=== PATIENT | male | born 2005 | race Caucasian/White ===

== ENCOUNTER 2024-11-19 21:44 | Emergency (ER) | payer OTHER, SELFPAY ==
[2024-11-19 21:47] VITALS: BP 127/71
--- NOTE | 2024-11-19 22:48 | ED.GENMED ---
History of Present Illness
General
Chief Complaint: Crisis Evaluation
Source: patient
Exam Limitations: none
Time Seen by Provider: 11/19/24 22:13
History of Present Illness
History of Present Illness:
19-year-old male apparently anxiety depression. Has been going on for months. Just had a baby. Apparently had an argument with his parents and mentioned that he would throw himself in the pool and drown. He states he has no plan or intent to do
this. This was just verbalizing during an argument in the stressful situation. He absolutely denies suicidal ideation. He does admit to anxiety and depression and is willing to get help for these issues. He denies acute medical complaints
Past History
Past History
ED Past Medical History: Psychiatric (Anxiety)
ED Past Surgical History: None
Social History
Tobacco: Non-smoker
Alcohol: None
Personal: Single
Living: with family
Review of Systems
Review of Systems
All Other Systems: Not applicable
Respiratory: Reports no symptoms
Cardiac: Reports no symptoms
ABD/GI: Reports no symptoms
Phy Exam
Physical Exam
Physical Exam:
GENERAL: Alert and oriented in no apparent distress
EYE: Orbits normal.
NECK: Supple
CARDIAC: Regular rate and rhythm without any obvious murmurs.
LUNGS: Clear breath sounds,normal
ABDOMEN: Soft, without focal tenderness or distention
NEUROLOGICAL: Alert and oriented , grossly non-focal
SKIN: Warm and dry
PSYCH: Normal and appropriate interaction. Cooperative. Pleasant.
Course
Orders/Labs/Results
Orders:
Orders
11/19/24 21:52
Crisis Consult Urgent
Reason for Consult: Depression
11/19/24 21:55
1:1 Observation - Suicide/ Violent Behavior As Directed
Vital Signs
Initial and Last Documented VS:
Initial Vital Signs
Temp Pulse Resp BP Pulse Ox
98.4 F 84 20 127/71 98
11/19/24 21:47 11/19/24 21:47 11/19/24 21:47 11/19/24 21:47 11/19/24 21:47
Last Documented Vital Signs
Temp Pulse Resp BP Pulse Ox
98.0 F 74 18 128/74 96
11/20/24 00:13 11/20/24 00:13 11/20/24 00:13 11/20/24 00:13 11/20/24 00:13
*Pulse Oximetry
SaO2: 98
Oxygen Mode of Delivery: Room air
Patient hypoxic: no (96)
*Critical Care Note
Total Time (30-74mins, 75-104mins- exclusive of procedures): Not Applicable
Update Note
Update Note:
Patient cleared by telepsych. I read and double checked with the patient that he is comfortable with outpatient management and agrees that he would not attempt any issues. Also stated that he would absolutely follow-up.
ED Attending Note
-
Portions of this chart may have been created with voice recognition software.� Occasional wrong word or��sound alike� substitutions may have occurred due to the inherent limitations of voice recognition software.
Discharge Plan
Departure
Patient Disposition: Home (Routine Discharge)
Date of Disposition: 11/20/24
Time of Disposition: 00:04
Patient with high blood pressure during this ER visit?: Yes
Discharge Problem:
Depression/anxiety
Instructions: Depression, Adult (DC), Anxiety, Adult (DC), BLOOD PRESSURE
Prescriptions:
No Action
desvenlafaxine succinate [Pristiq] 25 mg Tablet Extended Release 24 Hr
25 mg PO DAILY
multivitamin Tablet
1 tab PO DAILY
Referrals:
UNKNOWN - PT DOES,NOT KNOW [Family Provider]
Activity Restrictions/Additional Instructions:
Follow-up per crisis. Please return if you start feeling worse or have any worse thoughts or plan.
Interventions
Interventions:
*Risk Screen - Suicide Last Done: 11/19/24 21:47
*General Assessment Last Done: 11/19/24 21:47
*Neglect/Abuse Screening Last Done: 11/19/24 21:47
*ED- Fall Risk Assessment Last Done: 11/19/24 21:47
*ED COVID-19 Vaccine History Last Done: 11/19/24 21:47
*Nursing Disposition Last Done: 11/20/24 00:13
ED-Psychological Assessment Last Done: 11/19/24 22:02
Discharge Date and Time
Discharge Date/Time: 11/20/24 00:13
Print Language: [id number]
[2024-11-20 00:13] VITALS: BP 128/74
== END 2024-11-20 00:13 | disposition home or self-care (01) ==
LOC: EMR 21:44
PROVIDERS: EMERGENCY PHYSICIAN Emergency Medicine
DX: F32.A Depression, unspecified (principal); F41.9 Anxiety disorder, unspecified
CPT/HCPCS: 99283